=== PATIENT | male | born 1970 | race Caucasian/White ===

== ENCOUNTER 2025-04-14 15:40 | Emergency (ER) | payer SELFPAY ==
[~2025-04-14] VITALS: Ht 188 cm; Wt 79.5 kg
[2025-04-14 16:01] VITALS: TEMP 97.1
--- NOTE | 2025-04-14 16:34 | RADIOLOGY REPORT ---
CLINICAL HISTORY: LEFTFOOT PAIN s/p kicked bedframe TECHNIQUE: 3 views of the left foot were obtained. COMPARISON: None FINDINGS: No acute fracture or dislocation is seen. There is soft tissue swelling. There are moderate degenerative changes at the 1st MTP with osteophyte formation. There is moderate 1st digit hallux valgus. IMPRESSION: Soft tissue swelling. No acute fracture seen.
--- NOTE | 2025-04-14 17:34 | Physician Documentation ---
History of Present Illness ~ Chief Complaint: Foot pain Stated Complaint: L FOOT PAIN Time Seen by MD: 16:41 HPI This is a 55-year-old male who presents with pain and swelling to his left 2nd and 3rd toes following accidentally kicking a object approximately 4-5 days prior, patient additionally reports a small cut between the toes. Patient reports no other acute symptoms or concerns. Tetanus witin 5 years: Yes Medication Reconciliation Allergies: Coded Allergies: No Known Allergies (Unverified , 04/14/25) Scheduled Cephalexin*Monohydrate* (Keflex*), 1 CAP PO QID Cephalexin*Monohydrate* (Keflex*), 1 CAP PO QID Past Medical History Past Medical History: No Pertinent History Review of Systems ROS As stated above in the HPI, otherwise all systems are reviewed and negative. Physical Exam Vital Signs: Temperature: 97.1, Source: Temporal, Heart Rate: 94, Respiratory Rate: 18, BP: 144/84, Pulse Oximetry: 97, Weight: 79.550 Physical Exam VITALS: Reviewed and as above. GENERAL: Alert, nontoxic appearing, no apparent distress. RESPIRATORY: No increased work of breathing, no respiratory distress, speaking in full clear sentences MUSCULOSKELETAL: Erythema and mild swelling without deformity to left 2nd and 3rd toes greatest on posterior aspect. SKIN: Webspace between 2nd 3rd toes of left foot small superficial laceration less than 1 cm with a small amount of purulent discharge, skin of dorsal left foot between 2nd 3rd toes erythematous and mildly tender to touch Progress Results/Orders Results/Orders Completed Orders - DEBORA NOYOLA Cephalexin Capsule (Keflex Capsule) (04/14/25 17:30) Medications Received in ER Medications (Trade) Dose Ordered Sig/Jalil Route PRN Reason Start Time Stop Time Status Last Admin Dose Admin (Keflex capsule) 500 mg ONCE ONCE PO 04/14/25 17:30 04/14/25 17:31 DC 04/14/25 17:41 500 MG Vital Signs 04/14/25 04/14/25 16:01 18:10 Temp 97.1 Pulse 94 78 Resp 18 18 B/P (MAP) 144/84 151/93 Pulse Ox 97 99 EKG/XRAY/CT/US/VASC/MRI Bone/Soft Tissue X-Ray (Ext.) : Additional Comment Exam: FOOT, COMPLETE (3VW MIN) CLINICAL HISTORY: LEFTFOOT PAIN s/p kicked bedframe TECHNIQUE: 3 views of the left foot were obtained. COMPARISON: None FINDINGS: No acute fracture or dislocation is seen. There is soft tissue swelling. There are moderate degenerative changes at the 1st MTP with osteophyte formation. There is moderate 1st digit hallux valgus. IMPRESSION: Soft tissue swelling. No acute fracture seen. Electronically Signed by:PINKY CHINCHILLA MD Date & Time: 04/14/251631 Dictated by: PINKY CHINCHILLA MD Dictation date and time: 04/14/251631 I have reviewed and agree with the radiology report. I have reviewed and interpreted the imaging as: No fracture or dislocation Medical Decision Making Additional information obtaine: N/A Findings This 55-year-old male presented with pain and swelling to 2nd 3rd toes of left foot after striking the foot on an object, physical exam giving for a small laceration to the webspace with purulent discharge and erythema to the skin of dorsal left foot at the base of 2nd and 3rd toes consistent with wound cellulitis, x-ray of the foot did not demonstrate evidence of fracture or dislocation. Patient is otherwise well-appearing and appropriate for discharge, we will treat with oral antibiotics and rest, ice, compression, and elevation of the foot. Patient provided home care instructions return to care precautions, and follow up instructions which he verbalized understanding of. General Diff Dx:Considerations: Include: Abrasion, Laceration, Neurovascular injury, Sprain Knee Diff Dx:Considerations: Unlikely: Abrasion, Arthritis, Contusion, DJD, Fracture-femur, Fracture-fibula, Fracture-patella, Fracture-tibia, Gout, Hematoma, Laceration, Meniscus injury, Neurovascular injury, Open fracture, Rheumatoid arthritis, Septic, Sprain, Sprain-MCL, Sprain-LCL, Sprain-ACL, Sprain-PCL, Other Ankle Diff Dx:Considerations: Unlikely: Abrasion, Arthritis, Contusion, DJD, Fracture-metatarsal, Fracture-fibula, Fracture-tarsal, Fracture-tibia, Gout, Hematoma, Laceration, Malunion, Neurovascular injury, Nonunion, Open fracture, Osteomyelitis, Rheumatoid arthritis, Sprain, Septic, Ulcer, Other Foot Diff Dx:Considerations: Include: Abrasion, Cellulitis, Fracture- metatarsal, Fracture-phalynx, Fracture-tarsal, Gout, Ingrown toenail, Open fracture, Ulcer Toe Diff Dx:Considerations: Include: Cellulitis, Fracture, Subungual hematoma Departure Time of Disposition: 17:36 Disposition: 01 HOME / SELF CARE / HOMELESS Impression: Primary Impression: Cellulitis Qualified Codes: L03.116 - Cellulitis of left lower limb Additional Impression: Toe pain, left Condition: Improved Discharge Instructions: Cellulitis Additional Instructions: Keep the area clean dry and covered, please take the antibiotics as prescribed. Please use crutches to rest your foot, please see the attached home care instructions for rest, ice, compression, elevation treat the injury to your foot. Please follow up with your primary care provider in the next few days. Please return to the emergency department for any new or worsening concerning symptoms. Referrals: NO PRIMARY CARE PROVIDER (PCP) Prescriptions Cephalexin*Monohydrate* (Keflex*) 500 Mg Capsule 1 CAP PO QID for 5 Days, #20 CAP Prov: DEBORA NOYOLA 04/14/25 Cephalexin*Monohydrate* (Keflex*) 500 Mg Capsule 1 CAP PO QID for 5 Days, #20 CAP Prov: DEBORA NOYOLAP 04/14/25 Education Educated: Patient Educated regarding: diagnosis, treatment, prognosis, need for follow up Signature Scribe Signature: No scribe Attestation: The note accurately reflects work and decisions made by me.ELFEGO Castañeda 04/14/25 21:11 Parts of this note were created using [employer] voice recognition software program. While efforts were made to correct any mistakes made by this voice recognition software program, nonsensical phrases may remain in this note. In addition, there may be errors and syntax, grammar, content and spelling. DEBORA NOYOLA Apr 14, 2025 17:34
[2025-04-14] MEDS ORDERED: CEPH-585 PO (17:43)
[2025-04-14 18:10] VITALS: BP 151/93; PULSE 78; RESP 18; O2SAT 99
== END 2025-04-14 18:11 | disposition home or self-care (01) ==
LOC: ER 15:42
DX: L03.116 Cellulitis of left lower limb (principal); M79.675 Pain in left toe(s)
CPT/HCPCS: 73630; 99283; A4615